=== PATIENT | male | born 1975 | race Caucasian/White ===

== ENCOUNTER 2025-05-11 09:39 | Observation (INO) | payer SELFPAY ==
[2025-05-11] MEDS ORDERED: FAMOTIDINE 20 MG/2 ML VIAL IV ONE (09:53)
[2025-05-11] MEDS ORDERED: NA CHLORIDE 0.9% 2,000 ML ONE (09:54)
[2025-05-11 10:39] LABS: Absolute Lymphocytes (CBC) 1.6 K/uL (0.7-4.9); Hematocrit 41.3 % (39.6-49.0); Hemoglobin 14.3 g/dL (13.6-17.9); MCH 32.7 pg (27.0-35.0); MCHC 34.7 g/dL (32.0-36.0); MCV 94.2 fL (80-100); MPV 12.0 fL (7.6-11.3); Nucleated RBC Absolute Count 0.0 (0-0); Nucleated Red Blood Cells % 0.1 % (0-0); RBC Red Blood Cell Count 4.38 M/uL (4.33-5.43); White Blood Count 6.90 thou/uL (4.3-10.9)
[2025-05-11 10:52] LABS: PT Prothrombin Time 12.0 SECONDS (10-13.0); PTT, Activated Partial Thromb 20.0 SECONDS (27.2-37.4); Protime INR 1.06
[2025-05-11 10:58] LABS: ALT/SGPT 26.0 U/L (16-61); AST/SGOT 17.0 U/L (15-37); Albumin 4.1 g/dL (3.4-5.0); Albumin/Globulin Ratio 1.1 (1.1-1.8); Alkaline Phosphatase 67.0 U/L (45-117); Anion Gap 16.9 mEq/L (5.0-15.0); BUN Blood Urea Nitrogen 13.0 mg/dL (7-18); Globulin 3.7 g/dL (2.3-3.5); Glucose Level 95.0 mg/dL (74-106); Lipase 156.0 U/L (13-75); Potassium 3.9 mEq/L (3.5-5.1)
[2025-05-11 10:59] LABS: Urine Microscopic Reflex YN NO UMIC
[2025-05-11 11:32] LABS: White Blood Cell Scan OK (OK)
--- NOTE | 2025-05-11 11:50 | RAD REPORT ---
EXAMINATION: CT ABDOMEN AND PELVIS WITH CONTRAST CLINICAL INDICATION: Abd pain;Lower GI bleed TECHNIQUE: CT abdomen and pelvis was performed, after the administration of IV contrast, [facility]. Axial, sagittal and coronal reconstructions were obtained. One or more of the following dose reduction techniques were used: Automated exposure control, adjustment of the mA and k V according to patient size, and iterative reconstruction. Unless otherwise specified, incidental findings do not require dedicated imaging follow-up. COMPARISON: 12/20/2014 FINDINGS: LOWER CHEST: The visualized lung bases are clear. LIVER: Mild fatty liver is present. Small low-density hepatic lesions are noted, likely benign. Gross ly unremarkable gallbladder. SPLEEN: Normal size. No focal lesion. PANCREAS: No mass, ductal dilation, or giselle-pancreatic fluid. ADRENALS: Normal; no mass. KIDNEYS: Normal size and contour. No hydronephrosis. Small calculus in the inferior calyx of the righ t kidney. Benign cortical cyst left kidney. GASTROINTESTINAL TRACT: No evidence of free air, significant intra-abdominal free fluid, bowel obstru ction or abscess. There is moderate diverticulosis coli of the sigmoid colon without diverticulitis. APPENDIX: Normal appendix. LYMPH NODES: No lymphadenopathy. MUSCULOSKELETAL: Mild multilevel spinal degenerative changes. ADDITIONAL FINDINGS: Small fat-containing right inguinal hernia with a small segment of small intesti ne present in the region without obstruction. IMPRESSION: Significant diverticulosis coli of the sigmoid colon without diverticulitis. Follow-up colonoscopy to directly visualize this region of colon may be useful. Small nonobstructing stone inferior right kidney. Fatty liver with small low-density lesions probably benign cysts but incompletely assessed.
--- NOTE | 2025-05-11 11:58 | ER ---
Nurse's Notes [facility] Name: Carlos Romero III Age: 49 yrs Sex: Male : 1975 Arrival Date: 05/11/2025 Time: 09:39 Bed 6 Private MD: Diagnosis: Diverticulosis with lower GI bleeding;Dehydration Presentation: 05/11 09:59 Chief complaint: Patient states: bloody stools x 5 days ago, chills, reports abd aa5 discomfort/bloating, and lower back pain. 09:59 Coronavirus screen: At this time, the client does not indicate any symptoms associated aa5 with coronavirus-19. Ebola Screen: Patient denies travel to an Ebola-affected area in the 21 days before illness onset. Initial Sepsis Screen: Does the patient meet any 2 criteria? No. Patient's initial sepsis screen is negative. Does the patient have a suspected source of infection? No. Patient's initial sepsis screen is negative. Risk Assessment: Do you want to hurt yourself or someone else? Patient reports no desire to harm self or others. Onset of symptoms was April 2025. 09:59 Acuity: JIM 3 aa5 09:59 Method Of Arrival: Ambulatory aa5 Historical: - Allergies: 10:00 No Known Allergies; aa5 - PMHx: 10:00 Asthma; Kidney Stones (Unknown); Recovering Alcoholic (Unknown); aa5 - PSHx: 10:00 Hernia Repair (Unknown); Right shoulder (Unknown); Left Knee (Unknown); aa5 - Immunization history:: Adult Immunizations up to date. - Infectious Disease History:: Denies. - Social history:: Smoking status: Patient uses CBD gummies . Screenin:59 [facility] ED Fall Risk Assessment (Adult) History of falling in the last 3 months, hb including since admission No falls in past 3 months (0 pts) Confusion or Disorientation No (0 pts) Intoxicated or Sedated No (0 pts) Impaired Gait No (0 pts) Mobility Assist Device Used No (0 pt) Altered Elimination No (0 pt) Score/Fall Risk Level 0 - 2 = Low Risk Oriented to surroundings, Maintained a safe environment, Educated pt \T\ family on fall prevention, incl call for assistance when getting out of bed. Abuse screen: Denies threats or abuse. Denies injuries from another. Nutritional screening: No deficits noted. Tuberculosis screening: No symptoms or risk factors identified. Assessment: 10:00 General: Appears comfortable, Behavior is calm, cooperative. Pain: Complains of pain in aa5 lumbar area, left low back and right low back Pain does not radiate. Pain currently is 6 out of 10 on a pain scale. Quality of pain is described as aching, Pain began 2-3 days ago. Is continuous. Neuro: Level of Consciousness is awake, alert, obeys commands, Oriented to person, place, time, situation. Cardiovascular: Patient's skin is warm and dry. Respiratory: Airway is patent Respiratory effort is even, unlabored, Respiratory pattern is regular, symmetrical. GI: Abdomen is round non-distended, Bowel sounds present X 4 quads. Abd is soft and non tender X 4 quads. Reports bloating, bloody stool, x 5 days ago. : No signs and/or symptoms were reported regarding the genitourinary system. EENT: No signs and/or symptoms were reported regarding the EENT system. Derm: Skin is pink, warm \T\ dry. Musculoskeletal: Range of motion: intact in all extremities. 12:00 Reassessment: Patient is alert, oriented x 3, equal unlabored respirations, skin aa5 warm/dry/pink. 13:35 Reassessment: Patient and/or family updated on plan of care and expected duration. Pain kb4 level reassessed. Patient is alert, oriented x 3, equal unlabored respirations, skin warm/dry/pink. 14:40 Reassessment: Patient is alert, oriented x 3, equal unlabored respirations, skin aa5 warm/dry/pink. Vital Signs: 09:59 BP 175 / 107; Pulse 85; Resp 16 S; Temp 98(O); Pulse Ox 100% on R/A; Weight 86.18 kg aa5 (R); Height 5 ft. 9 in. (R); 12:00 BP 160 / 104; Pulse 80; Resp 16 S; Pulse Ox 99% on R/A; aa5 14:30 BP 162 / 99; Pulse 73; Resp 16 S; Pulse Ox 99% on R/A; aa5 09:59 Body Mass Index 28.06 (86.18 kg, 175.26 cm) aa5 ED Course: 09:41 Patient arrived in ED. mr 09:42 Jennie Carpenter PA-C [facility] sb4 09:42 Amari Gu MD is Attending Physician. sb4 09:52 Eleonora Espinoza, RN is Primary Nurse. aa5 09:59 Arm band placed on. hb 09:59 Patient has correct armband on for positive identification. Bed in low position. Call aa5 light in reach. Side rails up X 1. surveillance monitor on. Pulse ox on. NIBP on. 10:03 Triage completed. aa5 10:12 Initial lab(s) drawn, by me, sent to lab. First set of blood cultures drawn Left AC. ty 10:22 Inserted saline lock: 20 gauge in left forearm, using aseptic technique. Blood ty collected. Flushed with 10 mL NS. 10:22 Second set of blood cultures drawn Left Forearm. ty 10:32 Blood Culture Adult (2) Sent. ty 10:32 CBC with Diff Sent. ty 10:32 CMP Sent. ty 10:32 Lactate w/ 2H reflex if indic. Sent. ty 10:33 Protime (+inr) Sent. ty 10:33 Ptt, Activated Sent. ty 10:33 Lipase Sent. ty 11:29 No provider procedures requiring assistance completed. aa5 11:31 CT Abd/Pelvis - IV Contrast Only In Process Unspecified. EDMS 11:57 Gonzalo Ramachandran MD is Hospitalizing Provider. sb4 12:04 Alon Puentes MD is Hospitalizing Provider. sb4 14:40 Patient admitted, IV remains in place. aa5 Administered Medications: 10:35 Drug: Famotidine IVP 20 mg IVP once; dilute with 10 mL 0.9% NaCl; give over 2 minutes aa5 Route: IVP; Site: left forearm; 10:40 Follow up: Response: No adverse reaction aa5 10:36 Drug: NS 0.9% IV 1000 ml IV at 1000 ml once; to be given as a bolus over 60 minutes aa5 Route: IV; Rate: 1000 ml; Site: left forearm; 12:00 Follow up: IV Status: Completed infusion; IV Intake: 1000ml aa5 10:36 Drug: NS 0.9% IV 1000 ml IV at 1 bolus Per protocol; to be given as a bolus over 60 aa5 minutes Route: IV; Rate: 1 bolus; Site: left forearm; 12:00 Follow up: IV Status: Completed infusion; IV Intake: 1000ml aa5 11:09 Not Given (Physician Discretion): ns 0.9% 1000 ml IV at 1000 ml once; to be given as a sb4 bolus over 60 minutes 12:21 Drug: Pantoprazole IVP 40 mg IVP once Route: IVP; Site: right antecubital; kb4 13:08 Follow up: Response: No adverse reaction kb4 12:40 Drug: metroNIDAZOLE IVPB 500 mg 100 ml IVPB at 200 ml/hr once over 30 mins Volume: 100 kb4 ml; Route: IVPB; Rate: 200 ml/hr; Infused Over: 30 mins; Site: left antecubital; 13:10 Follow up: Response: No adverse reaction; IV Status: Completed infusion aa5 13:08 Drug: Ciprofloxacin IVPB 400 mg 200 ml IVPB once over 60 mins Volume: 200 ml; Route: kb4 IVPB; Infused Over: 60 mins; Site: left antecubital; 14:08 Follow up: Response: No adverse reaction; IV Status: Completed infusion aa5 Medication: 11:29 VIS not applicable for this client. aa5 Intake: 12:00 IV: 1000ml; Total: 1000ml. aa5 12:00 IV: 1000ml; Total: 2000ml. aa5 Outcome: 11:57 Decision to Hospitalize by Provider. sb4 14:40 Admitted to Med/surg accompanied by tech, via wheelchair, with chart, aa5 14:40 Condition: stable 14:40 Instructed on the need for admit, Demonstrated understanding of instructions, 14:41 Patient left the ED. aa5 Signatures: Dispatcher [employer] EDAR Deborah Yu, Reg Reg EspinozaEleonora, RN RN aa5 Jess Alegre RN RN hb Brown, Sophia, PA-C PA-C sb4 Shawn Lerner Kayla, RN RN kb4 Corrections: (The following items were deleted from the chart) 10:09 09:59 Chief complaint: Patient states: bloody stools x 5 days ago, chills, reports abd aa5 discomfort/bloating, and lower back pain. aa5 14:45 13:20 BP 160 / 104; Pulse 80bpm; Resp 16bpm; Spontaneous; Pulse Ox 99% RA; aa5 aa5
--- NOTE | 2025-05-11 11:58 | EDPHYS ---
Physician Documentation [facility] Name: Carlos Romero III Age: 49 yrs Sex: Male : 1975 Arrival Date: 05/11/2025 Time: 09:39 Bed 6 Private MD: ED Physician Amari Gu HPI: 05/11 09:52 This 49 yrs old Male presents to ER via Unassigned with complaints of Bloody Stools, sb4 Urinary Problem, Fever. 09:52 Onset: The symptoms/episode began/occurred 5 day(s) ago. sb4 09:57 Patient reports bloody stool for 5 days with associated lower abdominal cramping and sb4 flank pain. Has had a few episodes of nausea and vomiting. States he started experiencing burning with urination today. He also reports a fever. States he has had kidney stones in the past but it has been at least 10 years. Historical: - Allergies: 10:00 No Known Allergies; aa5 - PMHx: 10:00 Asthma; Kidney Stones (Unknown); Recovering Alcoholic (Unknown); aa5 - PSHx: 10:00 Hernia Repair (Unknown); Right shoulder (Unknown); Left Knee (Unknown); aa5 - Immunization history:: Adult Immunizations up to date. - Infectious Disease History:: Denies. - Social history:: Smoking status: Patient uses CBD gummies . ROS: 09:59 Respiratory: Negative for shortness of breath, cough, wheezing, and pleuritic chest sb4 pain, 09:59 Constitutional: Positive for fever, 09:59 Abdomen/GI: Positive for abdominal pain, nausea and vomiting, black/tarry stool, rectal bleeding, 09:59 Back: Positive for flank pain, bilaterally, 09:59 : Positive for urinary symptoms, burning with urination, foul smelling urine, 09:59 All other systems are negative, Exam: 09:59 Head/Face: Normocephalic, atraumatic. Eyes: Extra-ocular motions intact. Periorbital sb4 areas with no swelling, redness, or edema. ENT: Mucous membranes moist. Cardiovascular: Regular rate and rhythm with a normal S1 and S2. Respiratory: No increased work of breathing, no retractions or nasal flaring. Abdomen/GI: Soft, non-tender, no distension. Skin: Warm, dry with normal turgor. Normal color with no rashes, no lesions, and no evidence of cellulitis. 09:59 Constitutional: The patient appears in no acute distress, alert, awake, Vital Signs: 09:59 BP 175 / 107; Pulse 85; Resp 16 S; Temp 98(O); Pulse Ox 100% on R/A; Weight 86.18 kg aa5 (R); Height 5 ft. 9 in. (R); 12:00 BP 160 / 104; Pulse 80; Resp 16 S; Pulse Ox 99% on R/A; aa5 14:30 BP 162 / 99; Pulse 73; Resp 16 S; Pulse Ox 99% on R/A; aa5 09:59 Body Mass Index 28.06 (86.18 kg, 175.26 cm) aa5 MDM: 09:44 Medical Screening Exam initiated sb4 11:04 Independent interpretation of the following test(s) in the Emergency Department X-Ray: sb4 My interpretation is Chest x-ray image -no lobar consolidation or evidence of pneumonia. 12:01 Differential diagnosis: dehydration, GI bleed, colitis, diverticulitis, UTI, sb4 nephrolithiasis. Data reviewed: vital signs, nurses notes, lab test result(s), radiologic studies, and as a result, I will admit patient. Consideration of Admission/Observation Patient was admitted/placed on observation. Counseling: I had a detailed discussion with the patient and/or guardian regarding the historical points, exam findings, and any diagnostic results supporting the discharge/admit diagnosis, the presence of at least one elevated blood pressure reading (>120/80) during this emergency department visit, lab results, radiology results, the need for further work-up and treatment in the hospital. 05/11 09:51 Order name: Blood Culture Adult (2) sb4 05/11 09:51 Order name: CBC with Diff; Complete Time: 11:33 sb4 05/11 09:51 Order name: CMP; Complete Time: 10:59 sb4 05/11 09:51 Order name: Lactate w/ 2H reflex if indic.; Complete Time: 10:59 sb4 05/11 09:51 Order name: Protime (+inr); Complete Time: 10:54 sb4 05/11 09:51 Order name: Ptt, Activated; Complete Time: 10:54 sb4 05/11 09:51 Order name: Type And Screen sb4 05/11 09:51 Order name: UA Rfx Lalo Cult if indicated; Complete Time: 11:00 sb4 05/11 09:53 Order name: Lipase; Complete Time: 10:59 sb4 05/11 10:43 Order name: CBC Smear Scan; Complete Time: 11:33 EDMS 05/11 12:27 Order name: CBC with Automated Diff EDMS 05/11 12:27 Order name: CBC with Automated Diff EDMS 05/11 12:27 Order name: CBC with Automated Diff EDMS 05/11 12:27 Order name: CBC with Automated Diff EDMS 05/11 12:27 Order name: Comprehensive Metabolic Panel EDMS 05/11 12:27 Order name: Comprehensive Metabolic Panel EDMS 05/11 12:27 Order name: Comprehensive Metabolic Panel EDMS 05/11 12:27 Order name: Comprehensive Metabolic Panel EDMS 05/11 12:27 Order name: Hematocrit EDMS 05/11 12:27 Order name: Hemoglobin EDMS 05/11 10:03 Order name: CT Abd/Pelvis - IV Contrast Only; Complete Time: 11:51 sb4 05/11 09:51 Order name: Cardiac monitoring; Complete Time: 09:51 sb4 05/11 09:51 Order name: IV Saline Lock - Large Bore; Complete Time: 10:31 sb4 05/11 09:51 Order name: Labs collected and sent; Complete Time: 10:31 sb4 05/11 09:51 Order name: O2 Per Protocol; Complete Time: 09:51 sb4 05/11 09:51 Order name: O2 Sat Monitoring; Complete Time: 09:52 sb4 05/11 09:51 Order name: Vital Signs; Complete Time: 09:52 sb4 Administered Medications: 10:35 Drug: Famotidine IVP 20 mg IVP once; dilute with 10 mL 0.9% NaCl; give over 2 minutes aa5 Route: IVP; Site: left forearm; 10:40 Follow up: Response: No adverse reaction aa5 10:36 Drug: NS 0.9% IV 1000 ml IV at 1000 ml once; to be given as a bolus over 60 minutes aa5 Route: IV; Rate: 1000 ml; Site: left forearm; 12:00 Follow up: IV Status: Completed infusion; IV Intake: 1000ml aa5 10:36 Drug: NS 0.9% IV 1000 ml IV at 1 bolus Per protocol; to be given as a bolus over 60 aa5 minutes Route: IV; Rate: 1 bolus; Site: left forearm; 12:00 Follow up: IV Status: Completed infusion; IV Intake: 1000ml aa5 11:09 Not Given (Physician Discretion): ns 0.9% 1000 ml IV at 1000 ml once; to be given as a sb4 bolus over 60 minutes 12:21 Drug: Pantoprazole IVP 40 mg IVP once Route: IVP; Site: right antecubital; kb4 13:08 Follow up: Response: No adverse reaction kb4 12:40 Drug: metroNIDAZOLE IVPB 500 mg 100 ml IVPB at 200 ml/hr once over 30 mins Volume: 100 kb4 ml; Route: IVPB; Rate: 200 ml/hr; Infused Over: 30 mins; Site: left antecubital; 13:10 Follow up: Response: No adverse reaction; IV Status: Completed infusion aa5 13:08 Drug: Ciprofloxacin IVPB 400 mg 200 ml IVPB once over 60 mins Volume: 200 ml; Route: kb4 IVPB; Infused Over: 60 mins; Site: left antecubital; 14:08 Follow up: Response: No adverse reaction; IV Status: Completed infusion aa5 Disposition Summary: 05/11/25 11:57 Hospitalization Ordered Notes: Hospitalization Status: Inpatient Admission sb4 Location: Telemetry/[facility] (Inpatient) sb4 Condition: Fair sb4 Problem: new sb4 Symptoms: have improved sb4 Bed/Room Type: Standard sb4 Provider: Alon Puentes(05/11/25 12:04) sb4 Room Assignment: [facility](05/11/25 13:36) 6 Diagnosis - Diverticulosis with lower GI bleeding sb4 - Dehydration sb4 Forms: - Medication Reconciliation Form sb4 - SBAR form sb4 - Leadership Thank You Letter sb4 Signatures: Dispatcher [employer] Eleonora Edwards RN RN aa5 Teo Shelley, MECHANICAL TECHNICIAN-C MECHANICAL TECHNICIAN-Cla1 Jess Alegre RN RN Jennie Marques PA-C PABeverlyC sb4 Yazmin Sims bc6 Araseli Mendieta RN RN kb4 Corrections: (The following items were deleted from the chart) 12:04 11:57 Gonzalo Ramachandran sb4 sb4 13:36 11:57 sb4 bc6
[2025-05-11] MEDS ORDERED: PANTOPRAZOLE 40 MG INJ ONE (12:04)
[2025-05-11] MEDS ORDERED: ONDANSETRON 4 MG/2 ML VIAL IV PRN (12:22)
[2025-05-11] MEDS ORDERED: ACETAMINOPHEN 325 MG TABLET PO PRN (12:22)
[2025-05-11] MEDS ORDERED: METRONIDAZOLE 500mg IVPB 500 MG/100 ML BAG IV ONE (12:35)
[2025-05-11] MEDS: CIPROFLOXACIN 400mg IV 400 MG/200 ML BAG IV SCH (14:00)
--- NOTE | 2025-05-11 15:16 | P.HP ---
Certification for Inpatient Patient admitted to: Observation With expected LOS: <2 Midnights Patient will require the following post-hospital care: None Practitioner: I am a practitioner with admitting privileges, knowledge of patient current condition, hospital course, and medical plan of care. Services: Services provided to patient in accordance with Admission requirements found in Title 42 Section 412.3 of the Code of Federal Regulations Patient History Date of Service: 05/11/25 Reason for admission: Lower GI bleed History of Present Illness: 49-year-old otherwise healthy male presents emergency department chief complaint of abdominal cramping and bright red blood per rectum. He reports that earlier this week experiencing left lower quadrant abdominal pain and for the last 7 days has been having 2-3 bright red bloody bowel movements daily. He denies similar episodes in the past. Patient was evaluated in the emergency department his labs are significant for hemoglobin of 14.3 hematocrit of 41.3 platelet count of 178 INR 1.06 bicarb [address] of the abdomen pelvis was performed which showed significant diverticulosis without diverticulitis. Last bloody bowel movement was this morning, given his ongoing bright red blood per rectum we will observe patient in the hospital for serial H&H and GI consultation. Allergies No Known Drug Allergies Allergy (Verified 12/20/14 21:26) Unknown No Known Allergie Allergy (Uncoded 11/06/16 11:31) Unknown Home Medications: Albuterol Sulfate [Albuterol Sulfate 0.083% Neb Soln] 1 inhaler IH Q6HP PRN 12/20/14 Amlodipine [Norvasc*] 5 mg PO DAILY #30 tab 12/22/14 Codeine/APAP [Tylenol W/Codeine #3 tab] 1 tab PO Q6HP PRN #15 tab 12/22/14 - Past Medical/Surgical History Diabetic: No -: asthma -: kidney stones -: htn -: right rotator cuff surgery - Family History Mother -: Hypertension - Social History Alcohol use: No CD- Drugs: No Caffeine use: No Place of Residence: Home Review of Systems 10-point ROS is otherwise unremarkable Gastrointestinal: Abdominal Pain, Hematochezia Physical Examination - Physical Exam General: Alert, In no apparent distress, Oriented x3 HEENT: Atraumatic, PERRLA, EOMI Neck: Supple, 2+ carotid pulse no bruit, No LAD Respiratory: Clear to auscultation bilaterally, Normal air movement Cardiovascular: Regular rate/rhythm, Normal S1 S2 Gastrointestinal: Normal bowel sounds, No tenderness Musculoskeletal: No tenderness Integumentary: No rashes Neurological: Normal gait, Normal speech, Normal strength at 5/5 x4 extr, Normal affect - Studies Laboratory Data (last 24 hrs) 05/11/25 05/11/25 05/11/25 10:22 10:22 10:22 WBC 6.90 Hgb 14.3 Hct 41.3 Plt Count 178 PT 12.0 INR 1.06 APTT 20.0 L Sodium 139 Potassium 3.9 BUN 13 Creatinine 0.85 Glucose 95 Total Bilirubin 1.0 AST 17 ALT 26 Alkaline Phosphatase 67 Lipase 156 H Assessment and Plan - Plan Assessment: Lower GI bleed/bright red blood per rectum Diverticulosis Asthma Plan: Lower GI bleed/bright red blood per rectum Diverticulosis Serial H&H Empiric antibiotics GI consultation Denies previous episodes or any previous colonoscopy Asthma As needed inhaler/nebs DVT PPX: SCD Code status: Full code Discharge Plan: Home Plan to discharge in: 24 Hours - Advance Directives Does patient have a Living Will: No Does patient have a Durable POA for Healthcare: No - Code Status/Comfort Care Code Status Assessed: Yes (Full code) Critical Care: No Time Spent Managing Pts Care (In Minutes): 70
[2025-05-11 15:24] VITALS: BMI 27.3
[2025-05-11 15:30] VITALS: O2SAT 98
[2025-05-11] MEDS: FLU (Fluarix) 25-26 (6MOS UP)/PF 45 MCG/0.5 ML Syringe IM ONE (15:30)
[2025-05-11 16:33] LABS: Hematocrit 38.0 % (39.6-49.0); Hemoglobin 13.2 g/dL (13.6-17.9)
[2025-05-11] MEDS: METRONIDAZOLE 500mg IVPB 500 MG/100 ML BAG IV SCH (16:37)
--- NOTE | 2025-05-11 19:26 | CON ---
Reason For Consultation: Rectal bleeding. History Of Presenting Illness: The patient is a 49-year-old gentleman with no known medical issues, who came to the ER with complaints of 7-day history of bright red bleeding per rectum mixed with stoo l 2-3 times a day. However, I did have a detailed discussion just now with the patient and he says t he last bleeding was not even today, it was yesterday. Bleeding does not seem to be a lot in amount, upon my discussion with the patient. He did state that he did have some sharp left lower quadrant p ain day before yesterday. Appears to be asymptomatic at this time. I believe it was informed to the admitting team that the last bleeding episode was in the morning. However, I did clarify with the p atient twice and it was indeed yesterday and not today. Allergies: NO KNOWN DRUG ALLERGIES. Home Medications: As in the chart. Past Medical History: History of asthma, hypertension, kidney stones. Past Surgical History: Right rotator cuff surgery. Family History: Noncontributory. Social History: Denies toxic habits. Review of Systems: GI: As in HPI, otherwise negative. Remainder of 10-point review of systems is negative. Physical Examination: HEENT: Head atraumatic, normocephalic. Pupils equally reactive. Neck: Supple. Chest: Clear to auscultation bilaterally. Abdomen: Soft, nontender, nondistended. Bowel sounds present. Extremities: No pedal edema. Laboratory Data: Reviewed. Hemoglobin 14.3, hematocrit 41. No leukocytosis. Normal chemistry pane l. Imaging: CT revealed significant diverticulosis in the sigmoid and right kidney stones, fatty liver, as well as, benign cyst appearing structure in the liver. Impression: 49-year-old gentleman with a week-long history of rectal bleeding, which seems to have c ompletely stopped as he has not had bleeding for the last 1 day with normal labs and currently asympt omatic. Imaging did not show any acute findings. Bleeding may have been related to internal hemorrh oids. There is also a possibility he may have had a mild episode of diverticulitis given he had the pain. Plan: Continue current management, antibiotics, full liquid diet. The patient can follow up in the GI clinic as an outpatient. He will need an outpatient colonoscopy because of age and for screening purposes. Additionally, we will do more workup for the fatty liver on an outpatient basis. US/MODL Voice ID: [id number] Report ID: [id number]
[2025-05-11] MEDS ORDERED: HYDRALAZINE HCL 20 MG/ML VIAL IV PRN (21:02)
[2025-05-12 05:22] LABS: Absolute Lymphocytes (CBC) 1.9 K/uL (0.7-4.9); Hematocrit 36.1 % (39.6-49.0); Hemoglobin 12.6 g/dL (13.6-17.9); MCH 32.9 pg (27.0-35.0); MCHC 35.0 g/dL (32.0-36.0); MCV 94.2 fL (80-100); MPV 11.7 fL (7.6-11.3); Nucleated RBC Absolute Count 0.0 (0-0); Nucleated Red Blood Cells % 0.0 % (0-0); RBC Red Blood Cell Count 3.84 M/uL (4.33-5.43); White Blood Count 5.30 thou/uL (4.3-10.9)
[2025-05-12 05:42] LABS: ALT/SGPT 24.0 U/L (16-61); AST/SGOT 14.0 U/L (15-37); Albumin 3.6 g/dL (3.4-5.0); Albumin/Globulin Ratio 1.3 (1.1-1.8); Alkaline Phosphatase 50.0 U/L (45-117); Anion Gap 11.0 mEq/L (5.0-15.0); BUN Blood Urea Nitrogen 9.0 mg/dL (7-18); Globulin 2.8 g/dL (2.3-3.5); Glucose Level 84.0 mg/dL (74-106); Potassium 4.0 mEq/L (3.5-5.1)
[2025-05-12 09:09] VITALS: BP 158/89; TEMP 97.9
--- NOTE | 2025-05-12 12:45 | P.DS ---
Admission Date: 05/11/25 Discharge Date: 05/12/25 Disposition: ROUTINE DISCHARGE Discharge Condition: GOOD Reason for Admission: Lower GI bleed Brief History of Present Illness: 49-year-old otherwise healthy male presents emergency department chief complaint of abdominal cramping and bright red blood per rectum. He reports that earlier this week experiencing left lower quadrant abdominal pain and for the last 7 days has been having 2-3 bright red bloody bowel movements daily. He denies similar episodes in the past. Patient was evaluated in the emergency department his labs are significant for hemoglobin of 14.3 hematocrit of 41.3 platelet count of 178 INR 1.06 bicarb [address] of the abdomen pelvis was performed which showed significant diverticulosis without diverticulitis. Last bloody bowel movement was this morning, given his ongoing bright red blood per rectum we will observe patient in the hospital for serial H&H and GI consultation. Hospital Course: Assessment: Lower GI bleed/bright red blood per rectum Diverticulosis Asthma Patient was admitted hospital for bright red blood per rectum. He reports the symptoms have been ongoing for about 7 days now. His hemoglobin on admission to the hospital was 14.3. He is given 2 L of normal saline IV fluid in the emergency department, repeat hemoglobin was 13.2 last night and 12.6 this morning. His INR is normal at 1.06 LFTs within normal limits CT of the abdomen pelvis was performed which showed significant sigmoid diverticulosis without diverticulitis or obvious active bleeding. Patient was seen by GI while he was in the hospital who recommends outpatient follow-up for colonoscopy and further evaluation of fatty liver. GI does recommend a course of oral antibiotics for possible infectious findings which have been sent to his pharmacy. Vital Signs/Physical Exam: Temp Pulse Resp BP Pulse Ox 97.9 F 82 16 158/89 H 98 05/12/25 08:00 05/12/25 08:00 05/12/25 08:00 05/12/25 08:00 05/12/25 08:00 General: Alert, In no apparent distress, Oriented x3 HEENT: Atraumatic, PERRLA Neck: Supple, JVD not distended Respiratory: Clear to auscultation bilaterally, Normal air movement Cardiovascular: Regular rate/rhythm, Normal S1 S2 Gastrointestinal: Normal bowel sounds, No tenderness Musculoskeletal: No tenderness Integumentary: No rashes Neurological: Normal speech, Normal affect Laboratory Data at Discharge: WBC 5.30 thou/uL (4.3-10.9) 05/12/25 04:47 Hgb 12.6 g/dL (13.6-17.9) L 05/12/25 04:47 Hct 36.1 % (39.6-49.0) L 05/12/25 04:47 Plt Count 175 thou/uL (152-406) 05/12/25 04:47 PT 12.0 SECONDS (10-13.0) 05/11/25 10:22 INR 1.06 05/11/25 10:22 APTT 20.0 SECONDS (27.2-37.4) L 05/11/25 10:22 Sodium 140 mEq/L (136-145) 05/12/25 04:47 Potassium 4.0 mEq/L (3.5-5.1) 05/12/25 04:47 BUN 9 mg/dL (7-18) 05/12/25 04:47 Creatinine 0.89 mg/dL (0.70-1.30) 05/12/25 04:47 Glucose 84 mg/dL (74-106) 05/12/25 04:47 Total Bilirubin 0.8 mg/dL (0.2-1.0) 05/12/25 04:47 AST 14 U/L (15-37) L 05/12/25 04:47 ALT 24 U/L (16-61) 05/12/25 04:47 Alkaline Phosphatase 50 U/L (45-117) D 05/12/25 04:47 Lipase 156 U/L (13-75) H 05/11/25 10:22 Home Medications: Ciprofloxacin HCl 500 mg PO BID 7 Days #14 tab 05/12/25 metroNIDAZOLE [Flagyl] 500 mg PO Q8H 7 Days #21 tab 05/12/25 New Medications: Ciprofloxacin HCl 500 mg PO BID 7 Days #14 tab metroNIDAZOLE [Flagyl] 500 mg PO Q8H 7 Days #21 tab Physician Discharge Instructions: Patient was admitted hospital for bright red blood per rectum. He reports the symptoms have been ongoing for about 7 days now. His hemoglobin on admission to the hospital was 14.3. He is given 2 L of normal saline IV fluid in the emergency department, repeat hemoglobin was 13.2 last night and 12.6 this morning. His INR is normal at 1.06 LFTs within normal limits CT of the abdomen pelvis was performed which showed significant sigmoid diverticulosis without diverticulitis or obvious active bleeding. Patient was seen by GI while he was in the hospital who recommends outpatient follow-up for colonoscopy and further evaluation of fatty liver. GI does recommend a course of oral antibiotics for possible infectious findings which have been sent to his pharmacy. Diet: low residu Activity: Ad marla Followup: Surendra oN MD [Primary Care Provider] - 1-2 Weeks Ramu Gooden MD [OUTSIDE PHYSICIAN] - 1-2 Weeks Time spent managing pt's care (in minutes): 35
== END 2025-05-12 10:31 | disposition home or self-care (01) ==
LOC: ER 09:39 → ERHOLD 12:21 → 4TH 14:15
PROVIDERS: ADMIT Hospitalist; ATTEND Hospitalist
DX: K62.5 Hemorrhage of anus and rectum (principal); K57.90 Diverticulosis of intestine, part unspecified, without perforation or abscess without bleeding; J45.909 Unspecified asthma, uncomplicated; R10.32 Left lower quadrant pain; K76.0 Fatty (change of) liver, not elsewhere classified
CPT/HCPCS: 36415; 74177; 80053; 81003; 83605; 83690; 85014; 85018; 85025; 85610; 85730; 87040; 99285; G0378; J0360; J0744; J2470; J7030; Q9967